=== PATIENT | male | born 1950 | race Caucasian/White ===

== ENCOUNTER 2017-09-14 22:08 | Emergency (ER) | payer MEDICARE, MEDICAID ==
[~2017-09-14] VITALS: Ht 167.6 cm; Wt 63.5 kg
[~2017-09-14 22:08] MED LIST: ASPI-611 PO; CITA-278 PO; HYDR-565 PO; OMEP40CA37 PO; TRAZ-143 PO; VITAMIN D3 PO
[2017-09-14 23:17] VITALS: BP 127/83
[2017-09-15 00:23] LABS: CLARITY,URINE CLEAR (Clear); COLOR,URINE YELLOW (Yellow); GLUCOSE, URINE NEGATIVE (Neg); KETONES,URINE NEGATIVE (Neg); LEUKOCYTE ESTERASE ,URINE NEGATIVE (Neg); NITRITES, URINE NEGATIVE (Neg); OCCULT BLOOD,URINE NEGATIVE (Neg); PROTEIN,URINE NEGATIVE (Neg); UROBILINOGEN,URINE 0.2 E.U/dL (0.2-1.0)
[2017-09-15 00:26] LABS: URINE AMPHETAMINE SCREEN NEGATIVE (Neg); URINE BARBITUATE SCREEN NEGATIVE (Neg); URINE BENZODIAZEPINES SCREEN NEGATIVE (Neg); URINE CANNABINOID SCREEN POSITIVE (Neg); URINE COCAINE SCREEN NEGATIVE (Neg); URINE METHADONE SCREEN POSITIVE (Neg); URINE OPIATE SCREEN NEGATIVE (Neg); URINE PHENCYCLIDINE SCREEN NEGATIVE (Neg)
[2017-09-15 00:29] LABS: UA COLLECTION TYPE CLN CATCH MIDSTREAM
[2017-09-15 00:33] LABS: BASOPHILS % (AUTO) 0.2 % (0-1); EOSINOPHILS # (AUTO) 0.1 X10'3 (0-0.9); EOSINOPHILS % (AUTO) 0.5 % (0-6); HEMATOCRIT 38.8 % (42.0-52.0); HEMOGLOBIN 13.4 g/dl (14.0-17.9); LYMPHOCYTES # (AUTO) 1.4 X10'3 (1.1-4.8); LYMPHOCYTES % (AUTO) 13.7 % (21-51); MEAN CORPUSCULAR HEMOGLOBIN 33.6 PG (27.0-31.0); MEAN CORPUSCULAR HGB CONC 34.6 % (33.0-36.5); MEAN CORPUSCULAR VOLUME 97.1 FL (78-98); MEAN PLATELET VOLUME 7.3 FL (7.4-10.4); MONOCYTES # (AUTO) 0.8 X10'3 (0-0.9); MONOCYTES % (AUTO) 7.3 % (2-12); NEUTROPHILS # (AUTO) 8.1 X10'3 (1.8-7.7); NEUTROPHILS % (AUTO) 78.3 % (42-75); PLATELET COUNT 266 X10'3 (140-440); RED BLOOD COUNT 3.99 X10'6 (4.70-6.10); RED CELL DISTRIBUTION WIDTH 14.2 % (11.5-14.5); WHITE BLOOD COUNT 10.4 X10'3 (4.5-11.0)
[2017-09-15 01:17] LABS: ALANINE AMINOTRANSFERASE 24 U/L (12-78); ALBUMIN 3.9 G/DL (3.4-5.0); ALKALINE PHOSPHATASE 92 IU/L (46-116); ANION GAP 11 (8-16); ASPARTATE AMINO TRANSFERASE 25 U/L (10-37); BILIRUBIN,TOTAL 0.4 MG/DL (0.1-1.0); BLOOD UREA NITROGEN 19 MG/DL (7-18); CALCIUM 8.7 MG/DL (8.5-10.1); CHLORIDE 100 MMOL/L (99-107); CREATININE 1.19 MG/DL (0.60-1.10); GLUCOSE 91 MG/DL (70-104); POTASSIUM 3.9 MMOL/L (3.5-5.1); SODIUM 136 MMOL/L (135-145); TOTAL CARBON DIOXIDE 24.6 MMOL/L (24-32); TOTAL PROTEIN 7.8 G/DL (6.4-8.2); eGFR 61 ML/MIN
[2017-09-15 01:26] LABS: ETHANOL < 0.010 GM/DL (0.0-0.010); MAGNESIUM 1.5 MG/DL (1.5-2.4)
[2017-09-15 01:27] LABS: ACETAMINOPHEN < 2.0 UG/ML (10-30)
== END 2017-09-15 01:36 | disposition left against medical advice (07) ==
LOC: ER 22:09
DX: R44.1 Visual hallucinations (principal); F12.90 Cannabis use, unspecified, uncomplicated; F32.9 Major depressive disorder, single episode, unspecified; F41.9 Anxiety disorder, unspecified; Z90.49 Acquired absence of other specified parts of digestive tract; Z98.890 Other specified postprocedural states; Z79.82 Long term (current) use of aspirin; Z79.899 Other long term (current) drug therapy; Z59.0 Homelessness
CPT/HCPCS: 36415; 70450; 71045; 80053; 80305; 80320; 80329; 81003; 83735; 83880; 84443; 84484; 85025; 93005; 99285

== ENCOUNTER 2017-10-25 19:02 | Inpatient (IN) | payer MEDICARE, MEDICAID ==
[~2017-10-25] VITALS: Ht 162.6 cm; Wt 59.0 kg
[~2017-10-25 19:02] MED LIST changes: -TRAZ-143 PO; +TRAZ-218 PO
[2017-10-25 19:21] LABS: BASOPHILS % (AUTO) 0.4 % (0-1); EOSINOPHILS # (AUTO) 0.1 X10'3 (0-0.9); EOSINOPHILS % (AUTO) 1.3 % (0-6); HEMATOCRIT 41.2 % (42.0-52.0); HEMOGLOBIN 14.3 g/dl (14.0-17.9); LYMPHOCYTES # (AUTO) 2.1 X10'3 (1.1-4.8); LYMPHOCYTES % (AUTO) 29.1 % (21-51); MEAN CORPUSCULAR HEMOGLOBIN 33.2 PG (27.0-31.0); MEAN CORPUSCULAR HGB CONC 34.7 % (33.0-36.5); MEAN CORPUSCULAR VOLUME 95.6 FL (78-98); MEAN PLATELET VOLUME 7.1 FL (7.4-10.4); MONOCYTES # (AUTO) 0.9 X10'3 (0-0.9); MONOCYTES % (AUTO) 11.7 % (2-12); NEUTROPHILS # (AUTO) 4.2 X10'3 (1.8-7.7); NEUTROPHILS % (AUTO) 57.5 % (42-75); PLATELET COUNT 261 X10'3 (140-440); RED BLOOD COUNT 4.31 X10'6 (4.70-6.10); RED CELL DISTRIBUTION WIDTH 14.1 % (11.5-14.5); WHITE BLOOD COUNT 7.3 X10'3 (4.5-11.0)
[2017-10-25 19:31] LABS: PARTIAL THROMBOPLASTIN TIME 25 SECONDS (22-32); PROTHROMBIN TIME 10.2 SECONDS (9.0-12.0)
[2017-10-25 19:40] LABS: ALANINE AMINOTRANSFERASE 25 U/L (12-78); ALBUMIN 4.1 G/DL (3.4-5.0); ALBUMIN/GLOBULIN RATIO 1.1 (1.1-1.5); ALKALINE PHOSPHATASE 93 IU/L (46-116); ANION GAP 10 (8-16); ASPARTATE AMINO TRANSFERASE 24 U/L (10-37); BILIRUBIN,TOTAL 0.6 MG/DL (0.1-1.0); BLOOD UREA NITROGEN 22 MG/DL (7-18); BUN/CREATININE RATIO 15.9 (5.4-32.0); CALCIUM 9.8 MG/DL (8.5-10.1); CHLORIDE 105 MMOL/L (99-107); CREATININE 1.38 MG/DL (0.60-1.10); GLUCOSE 98 MG/DL (70-104); POTASSIUM 3.8 MMOL/L (3.5-5.1); SODIUM 141 MMOL/L (135-145); TOTAL CARBON DIOXIDE 26.5 MMOL/L (24-32); eGFR 52 ML/MIN
[2017-10-25] MEDS ORDERED: temazepam 15mg capsule PO PRN (21:00)
[2017-10-25] MEDS ORDERED: normal saline 1000ml 1,000 ML IV SCH (21:08)
[2017-10-25] MEDS ORDERED: mag hydrox/Alum hydrox/simeth 30ml oral suspension PO PRN (21:10)
[2017-10-25] MEDS ORDERED: HYDROcodone/acetaminophen 5mg/325mg tablet PO PRN (21:10)
[2017-10-25] MEDS ORDERED: magnesium hydroxide 30ml (MOM) UD suspension PO PRN (21:10)
[2017-10-25] MEDS ORDERED: HYDROcodone/acetaminophen 10/325mg tab PO PRN (21:10)
[2017-10-25] MEDS ORDERED: ondansetron/PF 4mg/2ml inj IV PRN (21:10)
[2017-10-25] MEDS ORDERED: acetaminophen 325mg tablet PO PRN ×2 (21:10)
[2017-10-25] MEDS: nitroGLYCERIN 0.4mg/hour patch TD SCH (21:42)
[2017-10-25 23:00] VITALS: BP 170/81
[2017-10-26 03:00] VITALS: BP 122/76
[2017-10-26 06:00] VITALS: BP 126/82
[2017-10-26] MEDS ORDERED: citalopram 20mg tablet PO SCH (08:00)
[2017-10-26] MEDS ORDERED: non-formulary drug (Omeprazole (Prilosec) 1 CAP) PO SCH (08:00)
[2017-10-26] MEDS ORDERED: non-formulary drug (Aspirin (Aspir 81) 1 TAB) PO SCH (08:00)
[2017-10-26] MEDS: nitroGLYCERIN 0.4mg/hour patch TD SCH (08:00)
[2017-10-26] MEDS: metoprolol tartrate 25mg tablet PO SCH ×2 (08:56→20:16)
[2017-10-26] MEDS: pantoprazole 40mg Tablet.DR PO SCH (08:56)
[2017-10-26] MEDS: aspirin 81mg tablet.DR PO SCH (08:57)
[2017-10-26] MEDS: enoxaparin 60mg/0.6ml syringe SUBCUT SCH ×2 (08:59→20:18)
[2017-10-26] MEDS ORDERED: LORazepam 2 mg/ml vial IV ONE ×2 (09:20→10:45)
[2017-10-26 10:00] LABS: ALANINE AMINOTRANSFERASE 24 U/L (12-78); ALBUMIN 3.6 G/DL (3.4-5.0); ALKALINE PHOSPHATASE 82 IU/L (46-116); ANION GAP 9 (8-16); ASPARTATE AMINO TRANSFERASE 26 U/L (10-37); BILIRUBIN,TOTAL 0.6 MG/DL (0.1-1.0); BLOOD UREA NITROGEN 21 MG/DL (7-18); BUN/CREATININE RATIO 18.6 (5.4-32.0); CALCIUM 9.1 MG/DL (8.5-10.1); CHLORIDE 104 MMOL/L (99-107); CREATININE 1.13 MG/DL (0.60-1.10); GLUCOSE 122 MG/DL (70-104); POTASSIUM 3.8 MMOL/L (3.5-5.1); SODIUM 138 MMOL/L (135-145); TOTAL CARBON DIOXIDE 24.8 MMOL/L (24-32); TOTAL PROTEIN 7.1 G/DL (6.4-8.2); eGFR 65 ML/MIN
[2017-10-26 10:18] LABS: BASOPHILS # (AUTO) 0.1 X10'3 (0-0.2); EOSINOPHILS # (AUTO) 0.1 X10'3 (0-0.9); EOSINOPHILS % (AUTO) 2.2 % (0-6); HEMATOCRIT 38.7 % (42.0-52.0); HEMOGLOBIN 13.2 g/dl (14.0-17.9); LYMPHOCYTES # (AUTO) 1.1 X10'3 (1.1-4.8); LYMPHOCYTES % (AUTO) 18.5 % (21-51); MEAN CORPUSCULAR HEMOGLOBIN 33.2 PG (27.0-31.0); MEAN CORPUSCULAR HGB CONC 34.2 % (33.0-36.5); MEAN CORPUSCULAR VOLUME 97.2 FL (78-98); MEAN PLATELET VOLUME 8.2 FL (7.4-10.4); MONOCYTES # (AUTO) 0.5 X10'3 (0-0.9); MONOCYTES % (AUTO) 9.1 % (2-12); NEUTROPHILS % (AUTO) 69.2 % (42-75); PLATELET COUNT 206 X10'3 (140-440); RED BLOOD COUNT 3.98 X10'6 (4.70-6.10); RED CELL DISTRIBUTION WIDTH 14.1 % (11.5-14.5); WHITE BLOOD COUNT 5.8 X10'3 (4.5-11.0)
[2017-10-26] MEDS: atorvastatin 20mg tablet PO SCH (10:55)
[2017-10-26] MEDS ORDERED: LORazepam 2 mg/ml vial IV PRN (10:55)
[2017-10-26] MEDS: potassium cl 20mEq in 1/2 NS 1,000 ML IV SCH ×2 (10:55→23:00)
[2017-10-26] MEDS ORDERED: citalopram 20mg tablet PO ONE (10:55)
[2017-10-26 11:00] VITALS: BP 140/71
[2017-10-26] MEDS ORDERED: haloperidol lactate 5mg/ml inj IM ONE ×2 (11:50→12:35)
[2017-10-26 15:00] VITALS: BP 107/70
[2017-10-26] MEDS ORDERED: haloperidol lactate 5mg/ml inj IM PRN (15:50)
[2017-10-26 19:00] VITALS: BP 124/70
[2017-10-26] MEDS: traZODone 50mg tablet PO SCH (20:18)
[2017-10-26 23:00] VITALS: BP 109/65
[2017-10-27 03:00] VITALS: BP 96/53
[2017-10-27 05:19] LABS: BASOPHILS % (AUTO) 0.6 % (0-1); EOSINOPHILS # (AUTO) 0.1 X10'3 (0-0.9); EOSINOPHILS % (AUTO) 2.4 % (0-6); HEMATOCRIT 37.1 % (42.0-52.0); HEMOGLOBIN 12.6 g/dl (14.0-17.9); LYMPHOCYTES % (AUTO) 33.3 % (21-51); MEAN CORPUSCULAR HEMOGLOBIN 33.3 PG (27.0-31.0); MEAN CORPUSCULAR VOLUME 97.9 FL (78-98); MEAN PLATELET VOLUME 7.5 FL (7.4-10.4); MONOCYTES # (AUTO) 0.6 X10'3 (0-0.9); MONOCYTES % (AUTO) 9.2 % (2-12); NEUTROPHILS # (AUTO) 3.3 X10'3 (1.8-7.7); NEUTROPHILS % (AUTO) 54.5 % (42-75); PLATELET COUNT 236 X10'3 (140-440); RED BLOOD COUNT 3.79 X10'6 (4.70-6.10); WHITE BLOOD COUNT 6.1 X10'3 (4.5-11.0)
[2017-10-27 05:56] LABS: ALANINE AMINOTRANSFERASE 25 U/L (12-78); ALBUMIN 3.2 G/DL (3.4-5.0); ALBUMIN/GLOBULIN RATIO 0.9 (1.1-1.5); ALKALINE PHOSPHATASE 77 IU/L (46-116); ANION GAP 6 (8-16); ASPARTATE AMINO TRANSFERASE 27 U/L (10-37); BILIRUBIN,TOTAL 0.3 MG/DL (0.1-1.0); BLOOD UREA NITROGEN 19 MG/DL (7-18); BUN/CREATININE RATIO 14.8 (5.4-32.0); CHLORIDE 105 MMOL/L (99-107); CHOL/HDL RATIO 3.2 (0.00-4.99); CHOLESTEROL 115 MG/DL (0-200); CREATININE 1.28 MG/DL (0.60-1.10); GLUCOSE 96 MG/DL (70-104); HDL CHOLESTEROL 36 MG/DL (35-60); LDL CHOLESTEROL 72 MG/DL (50-100); SODIUM 139 MMOL/L (135-145); TOTAL CARBON DIOXIDE 27.7 MMOL/L (24-32); TOTAL PROTEIN 6.7 G/DL (6.4-8.2); TRIGLYCERIDES 72 MG/DL (20-135); eGFR 56 ML/MIN
[2017-10-27 06:00] VITALS: BP 118/68
[2017-10-27 06:03] LABS: TROPONIN I 0.85 NG/ML (0.0-0.05)
[2017-10-27] MEDS: pantoprazole 40mg Tablet.DR PO SCH (07:44)
[2017-10-27] MEDS: citalopram 20mg tablet PO SCH (07:44)
[2017-10-27] MEDS: aspirin 81mg tablet.DR PO SCH (07:45)
[2017-10-27] MEDS: atorvastatin 20mg tablet PO SCH (07:45)
[2017-10-27] MEDS: metoprolol tartrate 25mg tablet PO SCH (07:46)
[2017-10-27] MEDS: enoxaparin 60mg/0.6ml syringe SUBCUT SCH ×2 (07:47→19:56)
[2017-10-27] MEDS: nitroGLYCERIN 0.4mg/hour patch TD SCH (07:48)
[2017-10-27 11:00] VITALS: BP 116/69
[2017-10-27] MEDS ORDERED: isosorbide mononitrate 30mg tab.SR.24H PO SCH (11:15)
[2017-10-27] MEDS ORDERED: clopidogrel 75mg tablet PO ONE (11:30)
[2017-10-27 15:00] VITALS: BP 98/59
[2017-10-27 19:00] VITALS: BP 134/75
[2017-10-27] MEDS: metoprolol tartrate 12.5mg (1/2 tablet) PO SCH (19:55)
[2017-10-27] MEDS: traZODone 50mg tablet PO SCH (19:56)
[2017-10-27 21:09] LABS: CLARITY,URINE CLEAR (Clear); COLOR,URINE YELLOW (Yellow); GLUCOSE, URINE NEGATIVE (Neg); KETONES,URINE NEGATIVE (Neg); LEUKOCYTE ESTERASE ,URINE NEGATIVE (Neg); NITRITES, URINE NEGATIVE (Neg); OCCULT BLOOD,URINE TRACE-INTACT (Neg); PH,URINE 5.5 (4.8-8.0); PROTEIN,URINE NEGATIVE (Neg); UROBILINOGEN,URINE 0.2 E.U/dL (0.2-1.0)
[2017-10-27 21:12] LABS: URINE AMPHETAMINE SCREEN NEGATIVE (Neg); URINE BARBITUATE SCREEN NEGATIVE (Neg); URINE BENZODIAZEPINES SCREEN NEGATIVE (Neg); URINE CANNABINOID SCREEN POSITIVE (Neg); URINE COCAINE SCREEN NEGATIVE (Neg); URINE METHADONE SCREEN NEGATIVE (Neg); URINE OPIATE SCREEN NEGATIVE (Neg); URINE PHENCYCLIDINE SCREEN NEGATIVE (Neg)
[2017-10-27 21:14] LABS: UA COLLECTION TYPE CLN CATCH MIDSTREAM
[2017-10-27 21:20] LABS: BACTERIA,URINE NONE SEEN /HPF (Neg); MUCUS STRANDS MODERATE /LPF (Neg); RBC,URINE 0-2 /HPF (0-2); SQUAMOUS EPITHELIAL CELL,UR FEW /LPF (FEW); WBC,URINE 0-4 /HPF (0-4)
[2017-10-27 23:00] VITALS: BP 121/79
[2017-10-28 03:00] VITALS: BP 100/50
[2017-10-28 05:20] LABS: BASOPHILS % (AUTO) 0.4 % (0-1); EOSINOPHILS # (AUTO) 0.2 X10'3 (0-0.9); EOSINOPHILS % (AUTO) 2.8 % (0-6); HEMATOCRIT 36.1 % (42.0-52.0); HEMOGLOBIN 12.2 g/dl (14.0-17.9); LYMPHOCYTES # (AUTO) 1.6 X10'3 (1.1-4.8); LYMPHOCYTES % (AUTO) 25.6 % (21-51); MEAN CORPUSCULAR HEMOGLOBIN 32.9 PG (27.0-31.0); MEAN CORPUSCULAR HGB CONC 33.9 % (33.0-36.5); MEAN CORPUSCULAR VOLUME 96.9 FL (78-98); MEAN PLATELET VOLUME 7.4 FL (7.4-10.4); MONOCYTES # (AUTO) 0.5 X10'3 (0-0.9); MONOCYTES % (AUTO) 8.5 % (2-12); NEUTROPHILS # (AUTO) 3.8 X10'3 (1.8-7.7); NEUTROPHILS % (AUTO) 62.7 % (42-75); PLATELET COUNT 234 X10'3 (140-440); RED BLOOD COUNT 3.72 X10'6 (4.70-6.10); RED CELL DISTRIBUTION WIDTH 13.8 % (11.5-14.5); WHITE BLOOD COUNT 6.1 X10'3 (4.5-11.0)
[2017-10-28 06:00] VITALS: BP 99/59
[2017-10-28] MEDS ORDERED: clopidogrel 75mg tablet PO SCH (08:00)
[2017-10-28] MEDS ORDERED: nitroGLYCERIN 0.4mg SUBLingual tab SL PRN (08:05)
[2017-10-28 08:31] VITALS: BP 130/63
[2017-10-28] MEDS: pantoprazole 40mg Tablet.DR PO SCH (08:37)
[2017-10-28] MEDS: citalopram 20mg tablet PO SCH (08:37)
[2017-10-28] MEDS: aspirin 81mg tablet.DR PO SCH (08:37)
[2017-10-28] MEDS: metoprolol tartrate 12.5mg (1/2 tablet) PO SCH (08:38)
[2017-10-28] MEDS: atorvastatin 20mg tablet PO SCH (08:38)
[2017-10-28] MEDS ORDERED: NITR0.4T51 SL (10:01)
[2017-10-28] MEDS ORDERED: CITA-278 PO (10:01)
[2017-10-28] MEDS ORDERED: METO25TA6 PO ×2 (10:01→10:04)
[2017-10-28] MEDS ORDERED: CLOP75TA35 PO (10:01)
[2017-10-28] MEDS ORDERED: ATOR20TA66 PO (10:01)
[2017-10-28] MEDS ORDERED: FAMO-128 PO (10:02)
[2017-10-28 11:00] VITALS: BP 126/67
== END 2017-10-28 14:30 | disposition home or self-care (01) | DRG 282 ==
LOC: ER 19:03 → ED HOLD 21:08 → PCU 3S 21:53
PROVIDERS: ADMIT Hospitalist; ATTEND Internal Medicine
DX: I21.4 Non-ST elevation (NSTEMI) myocardial infarction (principal); F12.90 Cannabis use, unspecified, uncomplicated; F41.9 Anxiety disorder, unspecified; E86.0 Dehydration; F17.210 Nicotine dependence, cigarettes, uncomplicated; F32.9 Major depressive disorder, single episode, unspecified; M54.9 Dorsalgia, unspecified; F41.0 Panic disorder [episodic paroxysmal anxiety]; I25.10 Atherosclerotic heart disease of native coronary artery without angina pectoris; F60.9 Personality disorder, unspecified; I25.2 Old myocardial infarction; Z90.49 Acquired absence of other specified parts of digestive tract; Z79.899 Other long term (current) drug therapy; Z79.82 Long term (current) use of aspirin; Z79.02 Long term (current) use of antithrombotics/antiplatelets
CPT/HCPCS: 36415; 71045; 80053; 80061; 80305; 81001; 84439; 84443; 84484; 85025; 85610; 85730; 87070; 93005; 93306; 99285; J1630; J1650; J2060; J7030

== ENCOUNTER 2020-07-26 03:31 | Emergency (ER) | payer MEDICARE, MEDICAID ==
[~2020-07-26] VITALS: Ht 154.9 cm; Wt 62.0 kg
[~2020-07-26 03:31] MED LIST changes: +ATOR20TA66 PO; -CITA-278 PO; +CITA20TA28 PO; +CLOP75TA34 PO; +FAMO-128 PO; -HYDR-565 PO; +LOP25T PO; +NITR0.4T51 SL; -OMEP40CA37 PO; -TRAZ-218 PO; +TRAZ-251 PO
[2020-07-26 03:37] VITALS: BP 132/87
== END 2020-07-26 03:49 | disposition left against medical advice (07) ==
LOC: ER 03:32
DX: F41.9 Anxiety disorder, unspecified (principal); Z53.21 Procedure and treatment not carried out due to patient leaving prior to being seen by health care provider

== ENCOUNTER → 2025-02-12 | Emergency (ER) | payer MEDICARE, MEDICAID ==
[~2025-02-12] VITALS: Ht 154.9 cm; Wt 62.0 kg
[~2025-02-12] MED LIST changes: +CITA-178 PO; -CITA20TA28 PO
[2025-02-12 20:14] VITALS: BP 128/78; PULSE 99; RESP 15; O2SAT 99
--- NOTE | 2025-02-12 23:53 | Physician Documentation ---
History of Present Illness ~ Chief Complaint: Bite-insect Stated Complaint: HEAD LICE Time Seen by MD: 23:08 Primary Medical Doctor: Dr. Cagle HPI This is a 74-year-old male who is a resident of the [facility] who presents with concern for body lice, patient reports he saw body lice on himself earlier today and in his bed. Patient reports no other acute symptoms or concerns. Tetanus within 5 years?: No Medication Reconciliation Allergies: Coded Allergies: No Known Drug Allergies (Verified Allergy, Unknown, 02/12/25) Scheduled Aspirin (Aspir 81), 1 TAB PO DAILY, (Reported) Atorvastatin Calcium (Atorvastatin Calcium), 20 MG PO DAILY Citalopram Hydrobromide* (Celexa*), 2 TAB PO DAILY Clopidogrel Bisulfate (Clopidogrel), 75 MG PO DAILY Famotidine (Pepcid), 1 TAB PO DAILY Metoprolol Tartrate* (Lopressor tablet*), 12.5 MG PO Q12H Trazodone HCl (Trazodone HCl), 1 TABLET PO HS, (Reported) [Vitamin D3], PO DAILY, (Reported) Scheduled PRN Nitroglycerin SL* (Nitrostat SL*), 0.4 MG SL Q5MIN PRN for Chest pain Q5min PRNx3-call MD Past Medical History Past Medical History: Coronary Artery Disease, Myocardial Infarction, Anxiety, Depression Past Surgical History: appendectomy, orthopedic surgeries Alcohol Use: Occasionally Drug Use: marijuana Lives with: Family Lives In: Home Review of Systems ROS As stated above in the HPI, otherwise all systems are reviewed and negative. Physical Exam Vital Signs: Temperature: 97.6, Source: Temporal, Heart Rate: 99, Respiratory Rate: 15, BP: 128/78, Pulse Oximetry: 99, Weight: 62.000 Physical Exam VITALS: Reviewed and as above. GENERAL: Alert, nontoxic appearing, no apparent distress. HEENT: No lice observed on scalp RESPIRATORY: No increased work of breathing, no respiratory distress, speaking in full clear sentences SKIN: Lice observed on skin or clothing, multiple small excoriations to skin of neck and shoulders Progress Results/Orders Results/Orders Completed Orders - OXANA PRAKASH Permethrin Topical Cream (Elimite Cream (02/12/25 23:55) Medications Received in ER Medications (Trade) Dose Ordered Sig/Carlos Route PRN Reason Start Time Stop Time Status Last Admin Dose Admin (Elimite Cream 5%) 1 applic ONCE ONCE TP 02/12/25 23:55 02/12/25 23:56 DC 02/13/25 00:05 1 APPLIC Vital Signs 02/12/25 02/12/25 20:14 23:59 Temp 97.6 97.6 Pulse 99 Resp 15 B/P (MAP) 128/78 Pulse Ox 99 Medical Decision Making Additional information obtaine: N/A Findings This is a 74-year-old male presented with concern for body lice, no body lice were observed on the patient however due to his living condition and reports this is consistent with body lice infestation. Otherwise well-appearing and appropriate for outpatient follow up. Patient will be treated with topical permethrin for body lice infestation. Patient provided home care instructions, follow up instructions, and return to care precautions which he verbalized understanding of. Differential Dx:Considerations: Include: Abrasion, Anaphylaxis, Cellulitis, Insect envenomation, Neurovascular injury, Urticaria Departure Time of Disposition: 23:57 Disposition: HOME / SELF CARE / HOMELESS Impression: Primary Impression: Body lice infestation Condition: Improved Discharge Instructions: Lice, Adult Additional Instructions: Apply the provided cream to your entire body excluding your face and allowed to sit on your body for 10-15 minutes then wash it off thoroughly with water. Wash all your clothing and bedding in hot water and change into clean clothes following treatment. Please follow up with your primary care provider or the [facility] in the next few days. Please return to the emergency department for any new or worsening concerning symptoms. Referrals: NO PRIMARY CARE PROVIDER (PCP) Education Educated: Patient Educated regarding: diagnosis, treatment, prognosis, need for follow up Signature Scribe Signature: No scribe Attestation: The note accurately reflects work and decisions made by me.MARICRUZ Leong 02/13/25 02:43 OXANA PRAKASH Feb 12, 2025 23:53
[2025-02-12 23:59] VITALS: TEMP 97.6
[2025-02-13] MEDS: Permethrin Cream 60gm TP ONE (00:05)
== END | disposition home or self-care (01) ==
LOC: ER 20:13
DX: B85.0 Pediculosis due to Pediculus humanus capitis (principal); I25.10 Atherosclerotic heart disease of native coronary artery without angina pectoris; I25.2 Old myocardial infarction; F41.9 Anxiety disorder, unspecified; F32.A Depression, unspecified; F12.90 Cannabis use, unspecified, uncomplicated; Z90.49 Acquired absence of other specified parts of digestive tract; Z79.82 Long term (current) use of aspirin; Z79.899 Other long term (current) drug therapy; Z72.89 Other problems related to lifestyle; Z98.890 Other specified postprocedural states
CPT/HCPCS: 99282